=== PATIENT | female | born 1955 | race Caucasian/White ===

== ENCOUNTER 2019-06-23 10:40 | Emergency (ER) | payer OTHER, SELFPAY ==
[2019-06-23 10:42] VITALS: BP 137/66; PULSE 69; RESP 16; TEMP 36.8; O2SAT 97; BMI 48.7
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
[2019-06-23] MEDS: Diphth,Pertuss(Acell),Tet Vac 0.5 ML Vial IM (11:14)
== END 2019-06-23 11:55 | disposition home or self-care (01) ==
LOC: ED 11:24
PROVIDERS: Emergency Provider Emergency Medicine
DX: S81.811A Laceration without foreign body, right lower leg, initial encounter (principal); V00.148A Other scooter (nonmotorized) accident, initial encounter; Y93.I9 Activity, other involving external motion; Y92.838 Other recreation area as the place of occurrence of the external cause; Y99.8 Other external cause status
CPT/HCPCS: 12002; 90471; 90715; 99285